=== PATIENT | male | born 1965 | race Caucasian/White ===

== ENCOUNTER 2018-01-30 12:05 | Emergency (ER) | payer BC ==
--- NOTE | 2018-01-30 12:25 | EDPHY ---
H & P Stated Complaint: c/o intermittent mid chest tightness x 1 month, today lethargic/chest tight Time Seen by Provider: 01/30/18 12:24 HPI/ROS: CHIEF COMPLAINT: Intermittent chest pain HISTORY OF PRESENT ILLNESS: The patient presents the ED with several months of intermittent chest pain. The patient feels that he primarily experiences symptoms with exertion. He does have this happen sporadically. The patient has no risk factors for coronary artery disease. He has a history of a lobectomy x2 secondary to lung cancer. Patient denies any pleuritic chest pain. He denies asymmetric calf pain or swelling. He currently is asymptomatic. The patient presents to the ED today at the recommendation of his primary care provider. REVIEW OF SYSTEMS: A comprehensive 10 point review of systems is otherwise negative aside from elements mentioned in the history of present illness. Source: Patient - Medical/Surgical History Hx Asthma: No Hx Chronic Respiratory Disease: No Hx Diabetes: No Hx Cardiac Disease: No Hx Renal Disease: No Hx Cirrhosis: No Hx Alcoholism: No Hx HIV/AIDS: No Hx Splenectomy or Spleen Trauma: No Other PMH: herpes simp 2, gerd, R lobectomy - benign tumor, pericarditis - Social History Smoking Status: Never smoked - Physical Exam Exam: General Appearance: Alert, no distress Eyes: Pupils equal and round no pallor or injection ENT, Mouth: Mucous membranes moist Respiratory: There are no retractions, lungs are clear to auscultation Cardiovascular: Regular rate and rhythm Gastrointestinal: Abdomen is soft and nontender, no masses, bowel sounds normal Neurological: A&O, normal motor function, normal sensory exam, normal cranial nerves Skin: Warm and dry, no rashes Musculoskeletal: Neck is supple nontender Extremities: symmetrical, full range of motion Constitutional: Initial Vital Signs Temperature (C) 36.6 C 01/30/18 12:08 Heart Rate 59 L 01/30/18 12:08 Respiratory Rate 16 01/30/18 12:08 Blood Pressure 152/90 H 01/30/18 12:08 O2 Sat (%) 97 01/30/18 12:08 O2 Delivery Mode Room Air Allergies/Adverse Reactions: No Known Allergies Allergy (Unverified 01/30/18 12:13) Home Medications: Medication Instructions Recorded Prevacid 01/30/18 valACYclovir 01/30/18 Medical Decision Making - Diagnostics EKG Interpretation: EKG: Complete interpretation has been separately recorded in the [facility] archive. Summary impression: Sinus rhythm, rate 55 Imaging Results: Chest x-ray PA lateral: Images reviewed by myself, no acute changes appreciated. ED Course/Re-evaluation: The patient presents the ED with months of intermittent chest pain. There is a component it which is certainly worsened with exertion however the patient does have some symptoms at rest. Patient has nothing to suggest PE or pericarditis based upon his history and physical exam. The patient's troponin is normal. The patient has a heart score of 1. The patient has been informed that he is at low risk for MACE. He is comfortable following up with Cardiology as an outpatient. He has been instructed to contact his primary care provider and will also be referred to our on-call it programmer analyst. Differential Diagnosis: Differential diagnosis considered includes acute coronary syndrome, pericarditis , myocarditis, zoster, pulmonary embolism - Data Points Laboratory Results: Laboratory Results 01/30/18 12:27 01/30/18 12:27 01/30/18 01/30/18 12:27 12:27 WBC 6.66 10^3/uL 10^3/uL (3.80-9.50) RBC 5.16 10^6/uL 10^6/uL (4.40-6.38) Hgb 15.9 g/dL g/dL (13.7-17.5) Hct 46.8 % % (40.0-51.0) MCV 90.7 fL fL (81.5-99.8) MCH 30.8 pg pg (27.9-34.1) MCHC 34.0 g/dL g/dL (32.4-36.7) RDW 13.2 % % (11.5-15.2) Plt Count 221 10^3/uL 10^3/uL (150-400) MPV 10.4 fL fL (8.7-11.7) Neut % (Auto) 53.7 % % (39.3-74.2) Lymph % (Auto) 32.4 % % (15.0-45.0) Kemper % (Auto) 7.5 % % (4.5-13.0) Eos % (Auto) 5.3 % % (0.6-7.6) Baso % (Auto) 0.8 % % (0.3-1.7) Nucleat RBC Rel Count 0.0 % % (0.0-0.2) Absolute Neuts (auto) 3.58 10^3/uL 10^3/uL (1.70-6.50) Absolute Lymphs (auto) 2.16 10^3/uL 10^3/uL (1.00-3.00) Absolute Monos (auto) 0.50 10^3/uL 10^3/uL (0.30-0.80) Absolute Eos (auto) 0.35 10^3/uL 10^3/uL (0.03-0.40) Absolute Basos (auto) 0.05 10^3/uL 10^3/uL (0.02-0.10) Absolute Nucleated RBC 0.00 10^3/uL 10^3/uL (0-0.01) Immature Gran % 0.3 % % (0.0-1.1) Immature Gran # 0.02 10^3/uL 10^3/uL (0.00-0.10) Sodium 139 mEq/L mEq/L (135-145) Potassium 3.9 mEq/L mEq/L (3.3-5.0) Chloride 105 mEq/L mEq/L (97-110) Carbon Dioxide 25 mEq/l mEq/l (22-31) Anion Gap 9 mEq/L mEq/L (6-14) BUN 15 mg/dL mg/dL (7-23) Creatinine 0.9 mg/dL mg/dL (0.7-1.3) Estimated GFR > 60 Glucose 97 mg/dL mg/dL (70-100) Calcium 9.0 mg/dL mg/dL (8.5-10.4) Departure - Departure Disposition: Home, Routine, Self-Care Clinical Impression: Chest pain Condition: Good Instructions: Chest Pain (ED) Additional Instructions: 1. Based upon the testing done in the Emergency Department today we see no evidence of a heart attack. 2. We are unable to fully exclude coronary artery disease based upon the testing available in the Emergency Department. 3. For this reason, we would like you to be seen by cardiology for consideration of additional testing within the next 3 days. 4. Please contact the it programmer analyst you have been referred to schedule this appointment as soon as possible. Their offices are typically open from 8:30am- 5pm M-F. 5. Please return to the Emergency Department immediately for any recurrent chest pain, difficulty breathing or other concerns. 6. You can also contact Dr. Alejandre to see if he can facilitate cardiology evaluation at the [facility]. Referrals: Marcial Alejandre MD [Primary Care Provider] - As per Instructions Luis Miguel Shepard MD [Medical Doctor] - As per Instructions
[2018-01-30 12:43] LABS: PLATELET COUNT 221 10^3/uL (150-400)
[2018-01-30 13:41] VITALS: BP 128/80
== END 2018-01-30 13:41 | disposition home or self-care (01) ==
DX: R07.9 Chest pain, unspecified (principal); Z85.118 Personal history of other malignant neoplasm of bronchus and lung
CPT/HCPCS: 84484-PO

== ENCOUNTER 2018-04-26 10:48 | Emergency (ER) | payer BC ==
[2018-04-26 10:51] VITALS: BP 136/83
--- NOTE | 2018-04-26 10:55 | EDPHY ---
H & P Smoking Status: Never smoked Time Seen by Provider: 04/26/18 10:52 HPI/ROS: CHIEF COMPLAINT: Chest pain HISTORY OF PRESENT ILLNESS: Patient is a 53-year-old male with no significant past medical history here with complaint of chest pain that started approximately 1 hr prior to arrival in the emergency room. States he was in the shower when he had onset of the left-sided dull pressure-like sensation. He also noticed some tingling in his left arm at the same time. "Tingling" was mostly in the hand denies any numbness or weakness in the arm. He also reports that he has had this sensation on and off for a long time due to chronic left shoulder injury. States he has had extensive cardiac workup over the last couple months including treadmill stress test which showed no abnormalities according to the patient. He additionally had an echo and a bubble echo which she states revealed no acute findings other than ASD. He is scheduled to have a catheterization and echo this Friday with Mariano to further evaluate his chest pain and the ASD. 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 Currently he denies any chest pain or shortness of breath or arm paresthesias. He did not take any aspirin this morning. Denies cough, fever, shortness of breath, history of pulmonary embolism or hemoptysis. REVIEW OF SYSTEMS: Constitutional: No fever, no chills. Eyes: No discharge. ENT: No sore throat. Cardiovascular: + chest pain, no palpitations. Respiratory: No cough, no shortness of breath. Gastrointestinal: No abdominal pain, no vomiting. Genitourinary: No hematuria. Musculoskeletal: No back pain. Skin: No rashes. Neurological: No headache. (Carson Long) Physical Exam: General Appearance: Alert and no distress. ENT: normal dentition. No tonsillar exudate or swelling. Eyes: Pupils equal and round no injection. Respiratory: Chest is nontender, lungs are clear to auscultation. Cardiac: regular rate and rhythm. No lower extremity edema Gastrointestinal: Abdomen is soft and nontender, no masses, bowel sounds normal. Musculoskeletal: Neck is supple and nontender. Extremities have full range of motion and are nontender without deformity Skin: No rashes or lesions. Neuro: Cranial nerves grossly intact. No nystagmus. Normal [id number] testing. No ulnar drift. Equal grasp bilateral hands. Ambulatory. (Carson Long) Constitutional: Initial Vital Signs Temperature (C) 36.4 C 04/26/18 10:49 Heart Rate 69 04/26/18 10:49 Respiratory Rate 16 04/26/18 10:49 Blood Pressure 136/83 H 04/26/18 10:49 O2 Sat (%) 96 04/26/18 10:49 O2 Delivery Mode Room Air Allergies/Adverse Reactions: No Known Allergies Allergy (Verified 04/26/18 10:49) Home Medications: Medication Instructions Recorded valACYclovir [Valtrex (*)] 500 mg PO DAILY 01/30/18 Medical Decision Making - Diagnostics EKG Interpretation: EKG: Complete interpretation has been separately recorded in the [facility] archive. Summary impression: Sinus rhythm, rate 63, no ischemic changes noted (Peng Carrera) Imaging Results: Imaging Impressions Chest X-Ray 04/26/18 11:03 Impression: No evidence for acute cardiopulmonary abnormality. ED Course/Re-evaluation: 53-year-old male here with brief moment of chest pain while taking a shower this morning. On arrival he has no chest pain or shortness of breath. Vital signs are all stable with no tachycardia or arrhythmia. He was given 325 aspirin for chest pain. Chest x-ray reveals no acute cardiopulmonary process. EKG shows normal sinus rhythm with no ST elevation or depression or ectopy. Troponin is negative. He does have appropriate follow-up with his engineering teacher in a few days and his heart score places him at low risk for ACS. We did discuss indications for return in the patient feels comfortable being discharged home at this point. (Carson Long) Differential Diagnosis: Aortic dissection, pulmonary embolism, ACS, CVA, cardiac arrhythmia (Carson Long) Other Provider: Independent physician evaluation: I evaluated and participated in the management of the patient. I also evaluated the patient independently. My co-signature indicates that I have reviewed this chart and I agree with the findings and plan of care as documented. My personal H&P findings include: Patient presented to the ED after episode chest pain that occurred while in the shower today. He has been experiencing intermittent chest pain for some time. The patient was referred to Cardiology was diagnosed incidentally with a PFO. He is scheduled to undergo an echocardiogram and angiogram for further characterization of that finding this week. The patient did have an unremarkable treadmill stress test. The patient does admit today that he feels that his symptoms were likely anxiety driven. He is currently asymptomatic. Physical exam: General Appearance: Alert, no distress Eyes: Pupils equal and round no pallor or injection ENT, Mouth: Mucous membranes moist Respiratory: There are no retractions, lungs are clear to auscultation Cardiovascular: Regular rate and rhythm Gastrointestinal: Abdomen is soft and nontender, no masses, bowel sounds normal Neurological: A&O, normal motor function, normal sensory exam, normal cranial nerves Skin: Warm and dry, no rashes Musculoskeletal: Neck is supple nontender Extremities: symmetrical, full range of motion Psychiatric: Patient is oriented X 3, there is no agitation ED course: Patient's EKG and troponin are normal. I re-evaluated the patient at 11:40 a.m. He is comfortable with discharge with follow-up as scheduled with Cardiology this week. (Peng Carrera) - Data Points Laboratory Results: Laboratory Results 04/26/18 11:00 04/26/18 11:00 04/26/18 04/26/18 04/26/18 11:02 11:00 11:00 WBC 5.36 10^3/uL 10^3/uL (3.80-9.50) RBC 5.63 10^6/uL 10^6/uL (4.40-6.38) Hgb 17.4 g/dL g/dL (13.7-17.5) Hct 50.8 % % (40.0-51.0) MCV 90.2 fL fL (81.5-99.8) MCH 30.9 pg pg (27.9-34.1) MCHC 34.3 g/dL g/dL (32.4-36.7) RDW 13.2 % % (11.5-15.2) Plt Count 219 10^3/uL 10^3/uL (150-400) MPV 10.0 fL fL (8.7-11.7) Neut % (Auto) 51.7 % % (39.3-74.2) Lymph % (Auto) 36.4 % % (15.0-45.0) Warren % (Auto) 7.6 % % (4.5-13.0) Eos % (Auto) 3.4 % % (0.6-7.6) Baso % (Auto) 0.7 % % (0.3-1.7) Nucleat RBC Rel Count 0.0 % % (0.0-0.2) Absolute Neuts (auto) 2.77 10^3/uL 10^3/uL (1.70-6.50) Absolute Lymphs (auto) 1.95 10^3/uL 10^3/uL (1.00-3.00) Absolute Monos (auto) 0.41 10^3/uL 10^3/uL (0.30-0.80) Absolute Eos (auto) 0.18 10^3/uL 10^3/uL (0.03-0.40) Absolute Basos (auto) 0.04 10^3/uL 10^3/uL (0.02-0.10) Absolute Nucleated RBC 0.00 10^3/uL 10^3/uL (0-0.01) Immature Gran % 0.2 % % (0.0-1.1) Immature Gran # 0.01 10^3/uL 10^3/uL (0.00-0.10) Sodium 138 mEq/L mEq/L (135-145) Potassium 4.2 mEq/L mEq/L (3.5-5.2) Chloride 106 mEq/L mEq/L (97-110) Carbon Dioxide 25 mEq/l mEq/l (22-31) Anion Gap 7 mEq/L mEq/L (6-14) BUN 14 mg/dL mg/dL (7-23) Creatinine 1.0 mg/dL mg/dL (0.7-1.3) Estimated GFR > 60 Glucose 100 mg/dL mg/dL (70-100) Calcium 9.4 mg/dL mg/dL (8.5-10.4) POC Troponin I 0.00 ng/mL ng/mL (0.00-0.08) Medications Given: Discontinued Medications Aspirin (Aspirin) 324 mg PO EDNOW ONE Stop: 04/26/18 11:06 Last Admin: 04/26/18 11:21 Dose: 324 mg Point of Care Test Results: Chemistry 04/26/18 11:02 POC Troponin I 0.00 ng/mL ng/mL (0.00-0.08) Departure - Departure Disposition: Home, Routine, Self-Care Clinical Impression: Chest pain Condition: Good Instructions: Chest Pain (ED) Additional Instructions: 1. Please follow-up with Dr. Quintana this week as scheduled for further cardiac testing. 2. Please return to the ED for markedly worsening symptoms or other concerns. Referrals: Patient,NotPresent [Unknown] - As per Instructions
[2018-04-26] MEDS ORDERED: ASPIRIN 81 MG CHEWABLE TAB PO ONE (11:05)
[2018-04-26 11:10] LABS: PLATELET COUNT 219 10^3/uL (150-400)
--- NOTE | 2018-04-26 12:02 | CPEKG ---
Test Reason : OPEN Blood Pressure : / mmHG Vent. Rate : 063 BPM Atrial Rate : 065 BPM P-R Int : 194 ms QRS Dur : 078 ms QT Int : 396 ms P-R-T Axes : 057 085 079 degrees QTc Int : 406 ms Sinus rhythm Confirmed by Peng Carrera ([id number]) on 04/26/2018 12:02:01 PM Referred By: Confirmed By:Peng Carrera
--- NOTE | 2018-05-06 23:04 | CPEKG ---
Test Reason : Blood Pressure : / mmHG Vent. Rate : 063 BPM Atrial Rate : 064 BPM P-R Int : 213 ms QRS Dur : 078 ms QT Int : 384 ms P-R-T Axes : 058 082 079 degrees QTc Int : 394 ms Sinus rhythm with 1st degree AV block Confirmed by Paul Quintana ([id number]) on 05/06/2018 11:03:25 PM Referred By: Confirmed By:Paul Quintana
== END 2018-04-26 11:45 | disposition home or self-care (01) ==
DX: R07.9 Chest pain, unspecified (principal)
CPT/HCPCS: 84484-ER

== ENCOUNTER 2018-05-05 07:12 | Day surgery (SDC) | payer BC ==
[~2018-05-05 07:12] MED LIST: ACETAMINOPHEN 325 MG TAB PO PRN; ASPIRIN EC 325 MG TAB PO ONE; DIAZEPAM 5 MG TAB PO ONE; FAMOTIDINE 20 MG TAB PO ONE; NITROGLYCERIN 0.4 MG BTL SL PRN; NS 1,000 ML IV SCH; TEMAZEPAM 15 MG CAP PO PRN; diphenhydrAMINE 25 MG CAP PO ONE
[2018-05-05] MEDS ORDERED: NS 1,000 ML IV ONE ×2 (07:13→07:14)
[2018-05-05] MEDS ORDERED: ASPIRIN EC 325 MG TAB PO ONE ×2 (07:14→07:50)
[2018-05-05] MEDS ORDERED: fentaNYL 100 MCG/2 ML INJ IVP ONE (07:14)
[2018-05-05] MEDS ORDERED: diphenhydrAMINE 25 MG CAP PO ONE ×2 (07:14→07:50)
[2018-05-05] MEDS ORDERED: MIDAZOLAM 2 MG/2 ML VIAL IVP ONE (07:14)
[2018-05-05] MEDS ORDERED: FAMOTIDINE 20 MG TAB PO ONE (07:14)
[2018-05-05] MEDS ORDERED: DIAZEPAM 5 MG TAB PO ONE (07:14)
[2018-05-05 07:42] LABS: PLATELET COUNT 214 10^3/uL (150-400)
[2018-05-05] MEDS ORDERED: FAMOTIDINE 20 MG TAB ONE (07:50)
[2018-05-05] MEDS ORDERED: DIAZEPAM 5 MG TAB ONE (07:50)
[2018-05-05] MEDS ORDERED: MIDAZOLAM 2 MG/2 ML VIAL ONE ×2 (07:51→08:42)
[2018-05-05] MEDS ORDERED: fentaNYL 100 MCG/2 ML INJ ONE ×2 (07:51→08:42)
[2018-05-05 07:57] LABS: INR 0.91 (0.83-1.16); PROTIME(PATIENT) 12.5 SEC (12.0-15.0)
[2018-05-05] MEDS ORDERED: LIDOCAINE 1% 300 MG/30 ML SDV ONE (08:42)
[2018-05-05] MEDS ORDERED: IOPAMIDOL (ISOVUE-370) 150 ML BTL IV ONE (08:42)
[2018-05-05] MEDS ORDERED: VERAPAMIL 5 MG/2 ML VIAL ONE (09:15)
[2018-05-05] MEDS ORDERED: HEPARIN 10,000 UNIT/10 ML MDV (1,000 UNIT/ML) ONE (09:15)
--- NOTE | 2018-05-05 09:32 | PDHPUP ---
History & Physical Update H&P update statement: This history and physical update is based on an assessment of the patient which was completed after admission or registration (within 24 hours), but prior to the surgery/procedure. H&P update: H&P reviewed & patient examined, no change in patient's condition since H&P completed
--- NOTE | 2018-05-05 09:33 | PDPROPOC ---
Sedation Plan of Care Sedation Plan of Care: vital signs stable, mental status noted, patient educated of risks, benefits, alternatives, patient can tolerate sedation ASA Classification: ASA 1 Planned drugs: fentanyl, midazolam Mallampati Score: Class 1 Mallampati Reference Image: Patient passed 3-3-2 rule?: Yes
--- NOTE | 2018-05-05 10:55 | PDDXCAT ---
Diagnostic Cath Note - . 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) - Procedure Access: right wrist Procedure: left heart catheterization, coronary angiography, left ventriculogram , right heart catheterization - Materials Left Heart Cath size: 5F Left Heart Cath materials: pigtail, other ([email or web address]) Right Heart Cath size: 5F Right Heart Cath materials: PWP catheter - Findings-Left Heart Catheterization LM: Unobstructed LAD: Normal LCX: Normal RCA: Dominant: Normal - Findings-Right Heart Catheterization RA: 3 mm of mercury RV: 30/8 mm of mercury PA: 32/13 mm of mercury PAOP: 10 mm of mercury Complications: None Estimated blood loss: <50ml Closure method: TR Band Assessment: Angiographically normal coronary arteries. Normal left ventricular systolic function. Normal right heart hemodynamics without step-up suggesting no significant [id number] shunt. SHALOM shows PFO. No evidence of atrial septal defect of any significance. Normal right ventricular chamber size and function. Plan: Primary prevention with clinical follow-up
== END 2018-05-05 14:08 | disposition home or self-care (01) ==
LOC: FCATH 07:12
PROVIDERS: ATTEND Internal Medicine Interventional Cardiology
PROC: B2111ZZ Fluoroscopy of Multiple Coronary Arteries using Low Osmolar Contrast (ICD-10-PCS; principal; 2018-05-05)
PROC: 4A023N8 Measurement of Cardiac Sampling and Pressure, Bilateral, Percutaneous Approach (ICD-10-PCS; principal; 2018-05-05)
PROC: B246ZZ4 Ultrasonography of Right and Left Heart, Transesophageal (ICD-10-PCS; principal; 2018-05-05)
PROC: B2151ZZ Fluoroscopy of Left Heart using Low Osmolar Contrast (ICD-10-PCS; principal; 2018-05-05)
DX: Q25.0 Patent ductus arteriosus (principal)
CPT/HCPCS: 93312; 93460; C1769; J1644; J2250; J3010; Q9967